=== PATIENT | male | born 1995 | race Two or more races ===

== ENCOUNTER 2020-03-18 19:32 | Emergency (ER) | payer SELFPAY ==
[~2020-03-18] VITALS: Ht 185.4 cm; Wt 127.2 kg
[2020-03-18 19:58] VITALS: BP 145/75
--- NOTE | 2020-03-18 20:45 | RAD ---
Study: 1. CR FOOT RIGHT 3V 2. CR ANKLE RIGHT 3V Indication: Rolled ankle. Comparison: None. Findings: Lucency at the lateral margin of the talar dome. On the true AP view there is slight cortical regularity at the lateral aspect of the tibial plafond and as well. On the AP oblique view there is slight loss of osseous overlap at the distal syndesmosis. No abnormal widening at the medial or lateral gutters. Focus of ossification along the dorsal aspect of the distal talus though this appears corticated. Ankle joint effusion, lateral more than medial ankle edema as well as edematous changes along the dorsum of the hindfoot and midfoot. Mild soft tissue prominence extends along the forefoot. No acute fracture seen throughout the foot. Impression: 1. Abnormal lucency at the lateral talar dome and faint cortical irregularity at the lateral tibial plafond. In the setting of ankle and foot edema as well as an ankle joint effusion, the constellation of findings is concerning for impaction injury with a talar dome osteochondral injury. 2. Minimal loss of osseous overlap at the distal syndesmosis is nonspecific in the absence of weightbearing. Distal syndesmotic injury is not excluded. Follow-up radiographs with the patient weightbearing would be useful to assess for instability. 3. Small focus of ossification along the dorsum of the distal talus appears corticated and may be chronic as opposed to an acute avulsion. Attention on follow-up is recommended as well. Electronically signed by: SARA SEALS MD (03/18/2020 8:42 PM) [id number]
--- NOTE | 2020-03-18 21:06 | PHYS DOC ---
Past Medical History Past Medical History: No Pertinent History Past Surgical History: Other Additional Past Surgical Histo: L. ANKLE Smoking Status: Never Smoker Alcohol Use: Occasionally General Adult EDM: Chief Complaint: ANKLE PROBLEM HPI: HPI: Patient is a 24 year old male who presents to the emergency department with complaints of right ankle pain after rolling his ankle inward yesterday evening while chasing his little sister. Patient states he has been unable to bear weight on his right leg since the injury and has been using crutches to ambulate. He denies any numbness, tingling, or weakness of the affected extremity. Patient states that he is able to flex and extend his right ankle but that there is extreme pain if he bears any weight at all. He currently rates his pain a 5 out of 10 on the pain scale at rest, the pain increases to a 10 out of 10 with weightbearing. Review of Systems: Review of Systems: Constitutional: Denies fever or chills. [] HENT: Denies nasal congestion or sore throat. [] Respiratory: Denies cough or shortness of breath. [] Cardiovascular: Denies chest pain or edema. [] GI: Denies abdominal pain, nausea, vomiting, or diarrhea. [] Musculoskeletal: See HPI Integument: Denies rash. [] Neurologic: Denies headache, focal weakness or sensory changes. [] Psychiatric: Denies depression or anxiety. [] Heart Score: Risk Factors: Risk Factors: DM, Current or recent (<one month) smoker, HTN, HLP, family history of CAD, obesity. Risk Scores: Score 0 - 3: 2.5% MACE over next 6 weeks - Discharge Home Score 4 - 6: 20.3% MACE over next 6 weeks - Admit for Clinical Observation Score 7 - 10: 72.7% MACE over next 6 weeks - Early Invasive Strategies Allergies: Allergies: Allergies Coded Allergies Type Severity Reaction Last Updated Verified No Known Drug Allergies 03/18/20 No Physical Exam: PE: Constitutional: Well developed, well nourished, no acute distress, non-toxic appearance, obese [] HENT: Normocephalic, atraumatic, bilateral external ears normal, nose normal. [] Eyes: PERRLA, EOMI, conjunctiva normal, no discharge. [] Neck: Normal range of motion, no stridor. [] Cardiovascular:Heart rate regular rhythm Lungs & Thorax: Respirations even and unlabored, no retractions, no respiratory distress Skin: Warm, dry, no erythema, no rash. [] Extremities: Right ankle, tenderness to palpation of anterior and lateral talus, no crepitus, no obvious deformity, 2+ edema of R ankle, no cyanosis, no clubbing, ROM intact Neurologic: Alert and oriented X 3, no focal deficits noted. [] Psychologic: Affect normal, judgement normal, mood normal. [] Current Patient Data: Vital Signs: Vital Signs Date Time Temp Pulse Resp B/P (MAP) Pulse Ox O2 Delivery O2 Flow Rate FiO2 03/18/20 19:58 98.4 63 20 145/75 (98) 97 Room Air 98.4 EKG: EKG: [] Radiology/Procedures: Radiology/Procedures: PROCEDURE: ANKLE RIGHT 3V Study: 1. CR FOOT RIGHT 3V 2. CR ANKLE RIGHT 3V Indication: Rolled ankle. Comparison: None. Findings: Lucency at the lateral margin of the talar dome. On the true AP view there is slight cortical regularity at the lateral aspect of the tibial plafond and as well. On the AP oblique view there is slight loss of osseous overlap at the distal syndesmosis. No abnormal widening at the medial or lateral gutters. Focus of ossification along the dorsal aspect of the distal talus though this appears corticated. Ankle joint effusion, lateral more than medial ankle edema as well as edematous changes along the dorsum of the hindfoot and midfoot. Mild soft tissue prominence extends along the forefoot. No acute fracture seen throughout the foot. Impression: 1. Abnormal lucency at the lateral talar dome and faint cortical irregularity at the lateral tibial plafond. In the setting of ankle and foot edema as well as an ankle joint effusion, the constellation of findings is concerning for impaction injury with a talar dome osteochondral injury. 2. Minimal loss of osseous overlap at the distal syndesmosis is nonspecific in the absence of weightbearing. Distal syndesmotic injury is not excluded. Follow-up radiographs with the patient weightbearing would be useful to assess for instability. 3. Small focus of ossification along the dorsum of the distal talus appears corticated and may be chronic as opposed to an acute avulsion. Attention on follow-up is recommended as well. [] Course & Med Decision Making: Course & Med Decision Making Pertinent Labs and Imaging studies reviewed. (See chart for details) 2119- Spoke with Dr. Matta, refer to Dr. Stephan Prieto who is a foot and ankle specialist. Place in ortho boot or splint, have patient be non-weight bearing, and prescribe pain medication. [] Dragon Disclaimer: Dragon Disclaimer: This electronic medical record was generated, in whole or in part, using a voice recognition dictation system. Departure Departure Impression: Primary Impression: Acute right ankle pain Disposition: HOME, SELF-CARE Condition: STABLE Referrals: NO PCP (PCP) Patient Instructions: Ankle Pain Additional Instructions: Fill prescription(s) and use as directed. Recommend application of ice, elevation, and rest of affected extremity. Wear the splint that was placed and use crutches until follow up appointment. I spoke with Dr. Matta our orthopedic surgeon on-call, he recommends that you follow-up with a foot and ankle specialist as your x-ray was not normal and showed chronic changes exacerbated by your acute injury. He recommends that you follow-up with Dr. Stephan Prieto at [facility]. The phone number is [phone], office is located at [address] [place] [address] Return to the ER if symptoms worsen. Scripts Hydrocodone Bit/Acetaminophen (HYDROCODONE-APAP 5-325 ) 1 Tab Tablet 1 TAB PO PRN Q6HRS PRN for PAIN for 5 Days, #20 TAB 0 Refills Prov: LASHONDA SHERMAN PAPER FOLDER 03/18/20 Justicifation of Admission Dx: Justifications for Admission: Justification of Admission Dx: No Splinting Splinting : Location: R ankle Hand-Made Type: orthoglass Splint: posterior walking (with stirrup) Pre-Proc Neuro Vasc Exam: normal Post-Proc Neuro Vasc Exam: normal, unchanged from pre-exam ALSHONDA SHERMAN PAPER FOLDER Mar 18, 2020 21:06
[2020-03-18] MEDS ORDERED: HYDR-2761 PO (22:04)
== END 2020-03-18 22:15 | disposition home or self-care (01) ==
LOC: ER 19:32
DX: M25.571 Pain in right ankle and joints of right foot (principal); X50.0XXA Overexertion from strenuous movement or load, initial encounter; Y93.89 Activity, other specified; Y92.89 Other specified places as the place of occurrence of the external cause; Y99.8 Other external cause status
CPT/HCPCS: 29515; 73610; 73630; 99284